=== PATIENT | female | born 1995 | race Two or more races ===

== ENCOUNTER 2024-03-11 10:39 | Outpatient (REF) | payer MEDICAID, SELFPAY ==
[2024-03-11 11:32] LABS: MANUAL DIFF FLAG NO
[2024-03-11 11:40] LABS: Basophils Absolute Auto 0.1 X10*3/uL (0.0-0.2); Basophils Percent Auto 2.2 % (0-2); Eosinophils Absolute Auto 0.4 X10*3/uL (0.0-0.4); Eosinophils Percent Auto 6.3 % (0-4); Hematocrit 32.9 % (37.0-47.0); Hemoglobin 9.7 g/dl (12.0-16.0); Imm Gran Abs Auto 0.02 X10*3/uL (0.00-0.03); Imm Gran Pct Auto 0.3 % (0.0-0.4); Lymphocytes Absolute Auto 2.7 X10*3/uL (1.2-4.9); Lymphocytes Percent Auto 42.3 % (20-40); Mean Corpuscular HGB Conc 29.5 g/dl (31.0-35.0); Mean Corpuscular Hemoglobin 20.5 pg (27.0-33.0); Mean Corpuscular Volume 69.4 fL (80.0-98.0); Mean Platelet Volume 10.2 fL (9.4-12.3); Monocytes Absolute Auto 0.3 X10*3/uL (0.1-1.2); Monocytes Percent Auto 5.2 % (2-11); Neutrophils Absolute Auto 2.8 x10*3/uL (2.0-8.3); Neutrophils Percent Auto 43.7 % (45-73); Platelet Count 430 X10*3/uL (160-400); Red Blood Count 4.74 X10*6/uL (4.20-5.50); Red Cell Distribution Width 17.4 % (11.0-16.0); White Blood Count 6.3 X10*3/uL (4.8-10.8)
[2024-03-11 12:14] LABS: Alanine Aminotransferase 16 U/L (0-31); Albumin Level 4.7 g/dL (3.5-5.0); Alkaline Phosphatase 64 U/L (39-117); Anion Gap 12 (12-20); Aspartate Amino Transferase 24 U/L (5-31); Bilirubin Total 0.4 mg/dL (0.0-1.0); Blood Urea Nitrogen 6 mg/dL (9-16); Calcium 9.7 mg/dL (8.4-10.2); Carbon Dioxide 26 mmol/L (22-29); Chloride 107 mmol/L (96-108); Estimated Glomerular Filt Rate > 60; Glucose Random 94 mg/dL (60-115); Potassium 3.4 mmol/L (3.3-5.1); Sodium 142 mmol/L (135-145); Total Protein 8.2 g/dL (6.5-8.0)
[2024-03-11 12:15] LABS: HCG Quantitative < 2 mIU/mL
[2024-03-11 13:07] LABS: CT PCR NOT DETECTED (Not Detect.); NG PCR NOT DETECTED (Not Detect.)
[2024-03-12 06:04] LABS: CT PCR NOT DETECTED (Not Detect.); NG PCR NOT DETECTED (Not Detect.)
[2024-03-12 10:43] LABS: Bacterial Vaginosis PCR POSITIVE (Negative); Candida Group PCR DETECTED (Not Detect); Candida glab krusei PCR NOT DETECTED (Not Detect); Trichomonas vaginalis PCR NOT DETECTED (Not Detect)
== END 2024-03-11 10:40 | disposition home or self-care (01) ==
LOC: HO.HHCL 10:39
PROVIDERS: Visit Provider Nurse Practitioner Family
DX: R10.30 Lower abdominal pain, unspecified (principal)
CPT/HCPCS: 0352U; 80053; 84702; 85025; 87491; 87591

== ENCOUNTER 2024-03-20 15:24 | Outpatient (REF) | payer MEDICAID, OTHER, SELFPAY ==
--- NOTE | ~2024-03-20 | US_ITS ---
EXAMINATION: US OBSTETRICAL ULTRASOUND CLINICAL INFORMATION: Assess for. 01/19/2024. Assess for . HCG negative. COMPARISON: None available. LMP: 01/19/2024. TECHNIQUE: Portable sonographic transabdominal and endovaginal views the pelvis were obtained. Endovaginal images were needed to better assess the anatomy FINDINGS: Anteroverted uterus measuring 8.5 x 4.0 x 6.5 cm in size. Endometrial thickness is 0.1 cm. There is no evidence for intrauterine or decidual reaction. MATERNAL ADNEXA: The right maternal ovary measures 5.0 x 2.2 x 2.6 cm. Volume 15 mL with physiologic follicle seen The left maternal ovary measures 4.7 x 3.1 x 3.0 cm. Volume 19 mL with physiologic follicle seen. There is no significant adnexal mass. No pelvic ascites. US/US OB pelvic and transvaginal IMPRESSION: Unremarkable pelvic ultrasound. No intrauterine or endometrial decidual reaction in this patient with a negative beta hCG
== END 2024-03-20 15:25 | disposition home or self-care (01) ==
LOC: HO.US 15:24
PROVIDERS: PCP Family Medicine; Visit Provider Family Medicine
DX: N91.2 Amenorrhea, unspecified (principal)
CPT/HCPCS: 76801; 76817; 87086

== ENCOUNTER 2024-03-20 16:19 | Outpatient (REF) | payer MEDICAID, OTHER, SELFPAY | END 2024-03-20 16:20 | disposition home or self-care (01) | LOC: HO.HHCLNP 16:19 | PROVIDERS: Visit Provider Family Medicine | DX: R10.30 Lower abdominal pain, unspecified (principal) | CPT/HCPCS: 87086 ==